=== PATIENT | male | born 1995 ===

== ENCOUNTER → 2017-12-04 | Day surgery (SDC) | payer OTHER ==
[2017-11-30 15:30] VITALS: Ht 172.7 cm; Wt 61.8 kg
[~2017-12-04] VITALS: Ht 172.7 cm; Wt 61.8 kg
[~2017-12-04] MED LIST: ATROPINE SULFATE 0.1 MG/ML 5ML SYR IV PRN; BUPIVACAINE 0.5 % 5 MG/1 ML MPF 30ML VIAL ONE; CEFAZOLIN 1000MG IV PUSH 5 ML IV SCH; DEXAMETHASONE SOD INJ 4 MG/ML VIAL ONE; FENTANYL CITRATE INJ 50 MCG/1 ML 2 ML VIAL IV PRN; FENTANYL CITRATE INJ 50 MCG/1 ML 2 ML VIAL ONE; HYDR-5688 PO; KETOROLAC TROMETHAMINE 30 MG/ML VIAL IV. PRN; LACTATED RINGER'S 1000ML 1,000 ML IV SCH; LEVE500T13 PO; LIDOCAINE HCL 2% 2 ML VIAL (20MG/ML) ONE; LIDOCAINE/EPINEPHRINE 1% 20 ML VIAL ONE; MIDAZOLAM HCL 1 MG/ML 2ML VIAL ONE; ONDANSETRON INJ 2 MG/ML 2 ML VIAL IV PRN; ONDANSETRON INJ 2 MG/ML 2 ML VIAL ONE; OXYCODONE/ACETAMINOPHEN 5-325 TAB PO PRN; PROPOFOL IV EMULSION 10 MG/ML 20 ML VIAL IV ONE; SODIUM CHLORIDE 0.9% 1000ML 1,000 ML IV SCH
--- NOTE | 2017-12-04 06:47 | History & Physical Bridge Note ---
H&P Re-Evaluation Bridge Note: I have examined the patient, reviewed the History & Physical and in the interval since the performance of the History & Physical I have noted the following changes of clinical significance: No changes noted
--- NOTE | 2017-12-04 07:52 | [facility] Post Operative Brief Note ---
Immediate Operative Summary Operative Date Dec 04, 2017. Pre-Operative Diagnosis Mallet Fracture Left Long Finger Post-Operative Diagnosis Same Procedure(s) Performed Left Long Finger Closed Reduction Pinning Surgeon Dr. Barrera Regional Marketing Director Surgeon(s) Simón Malone PA-C Estimated Blood Loss 0 mL Findings Consistent with Post-Op Diagnosis Specimens None Drains None Anesthesia Type MAC Regional Complication(s) none Disposition Accompanied Pt To Recover: no Disposition: Recovery Room / PACU
[2017-12-04 08:01] VITALS: TEMP 36.7
--- NOTE | 2017-12-04 08:04 | [facility] Operative Report ---
Operative Report Operative Date Dec 04, 2017. Pre-Operative Diagnosis Mallet Fracture Left Long Finger Post-Operative Diagnosis Same Procedure(s) Performed Left Long Finger Closed Reduction Pinning Surgeon Dr. Barrera Parts Sales Advisor Surgeon(s) Simón Malone PA-C Estimated Blood Loss 0 mL Findings As above Specimens None Anesthesia local with IV sedation Complication(s) None Disposition Recovery Room / PACU Implants 2 0.045 inch K wires Indications Patient's a 22-year-old male status post injury to the left long finger. He has a displaced mallet fracture with a large articular fragment and slight volar subluxation. This injury occurred slightly over 2 weeks ago. Description of Procedure Informed consent was obtained. The patient was identified as aure kwon. He identified on her site as the left long finger. I marked with my initials. Preoperative surgical timeout was performed. Any preoperative dose of IV antibiotics was given. He was taken to the operating room and positioned supine on the operating room table. The left arm was placed on a hand table. A tourniquet was applied to the left upper arm but not inflated during the case. The limb was prepped and draped in usual sterile fashion DVT prophylaxis was not indicated. The examination demonstrated a displaced mallet fracture under x-ray. This was able to be improved with manipulation and extension as well as volarward pressure on the dorsal fragment reducing it to almost anatomic. A 0.045 inch K wire was introduced from the distal portion of the phalanx under fluoroscopic guidance. The finger was then maximally flexed and a second 0.045 inch K wire was introduced just proximal to the fragment through the extensor tendon. This was then drilled into the middle phalanx bicortically. The finger was then extended which reduced the fracture fragment. Dorsalward pressure was applied on the distal fragment. The initial K wire was then drilled across the DIP joint in a bicortical fashion. The pins were in good position bicortically on x-ray. The fracture and joint were reduced. A relaxing incision was made dorsally after bending the pin slightly. This was closed with 4-0 nylon. The pins were cut short outside the skin and Jurgan balls were applied. A soft sterile dressing was applied Xeroform 2 x 2's and Cassy Coban. The patient also has a possible nondisplaced fracture involving the ring finger distal phalanx. A splint was reapplied to that finger also. A volar splint immobilizing the DIP joint. Patient awakened from anesthesia without difficulty and taken to the recovery room in stable condition. There were no specimens or complications. Counts were correct in the case. Blood loss was minimal. At the conclusion operation I spoke the patient's friend. I informed him of my findings gave detailed postoperative instructions. Prior to start of the operation a digital block was performed with a 50-50 mixture of 0.5% Marcaine and 1% lidocaine with epinephrine I attest to the content of the Intraoperative Record and any orders documented therein. Any exceptions are noted below.
--- NOTE | 2017-12-04 08:08 | Discharge Instructions-SurgCtr ---
Discharge Instructions Date of Service Dec 04, 2017. Visit Reason for Visit: Left Long Finger Mallet Fracture Discharge Discharge Diagnosis / Problem: left long finger mallet fracture Discharge Goals Goal(s): Decrease discomfort, Improve function, Increase independence Activity Recommendations Activity Limitations: per Instructions/Follow-up section Weightbearing Status: Left non-weightbearing (left hand) Anesthesia . Post Anesthesia Instructions: If you have had General Anesthesia or IV Sedation: * Do not drive today. * Resume driving when surgeon permits. * Do not make important decisions or sign legal documents today. * Call surgeon for: 1. Temperature elevations greater than 101 degrees F. 2. Uncontrollable pain. 3. Excessive bleeding. 4. Persistent nausea and vomiting. 5. Medication intolerance (nausea, vomiting or rash). * For nausea and vomiting use only clear liquids such as: tea, soda, bouillon until nausea subsides, then gradually increase diet as tolerated. * If you have any concerns or questions, call your surgeon's office. If physician is unavailable and it is an emergency, call 911 or go to the nearest emergency room. . Instructions / Follow-Up Instructions / Follow-Up DIET: * Resume previous diet. MEDICATIONS: * Please take your prescriptions as instructed at your pre-op appointment and/ or see medication discharge instructions listed above. * If concerns develop, call your physician's office at . SPECIAL CARE INSTRUCTIONS: * Ice to left hand * Elevate left hand above heart to relieve pain/swelling * Keep dressing clean, dry, intact. * Your surgical extremity may be discolored due to prepping agents used on the skin. A bluish-green tint is a normal variant and should not cause alarm. * Ok to do range of motion to fingers left hand Call your doctor at [phone] if: * Temperature above 101 degrees * Pain not relieved by pain medicine ordered * There is increased drainage or redness from any incision * You have any unanswered questions, problems or concerns. FOLLOW UP VISIT: * If not already scheduled, please call the office at to schedule a follow-up appointment. * Please follow up with Loyda Malone PA-C on 12/06/17 at 3:45 p.m. * Please call [phone] with any questions, concerns or need to reschedule appointment Diet Recommendations Home Diet: no limitations, resume previous diet Procedures Procedures Performed: Left Long Finger Closed Reduction Pinning Pending Studies Studies pending at discharge: no Medical Emergencies . Who to Call and When: Medical Emergencies: If at any time you feel your situation is an emergency, please call 911 immediately. . Non-Emergent Contact Non-Emergency issues call your: Surgeon Call Non-Emergent contact if: temperature is above 101, your pain is not controlled, wound has increased drainage, wound has increased redness, wound has increased pain, you have any medication questions . . "Provider Documentation" section prepared by Loyda Malone. . [place] Drug Monitoring Program Search Results: patient reviewed within database, no issues identified
--- NOTE | 2017-12-04 08:11 | [facility] Operative Report ---
Operative Report Operative Date Dec 04, 2017. Pre-Operative Diagnosis Mallet Fracture Left Long Finger Post-Operative Diagnosis Same Procedure(s) Performed Left Long Finger Closed Reduction Pinning Surgeon Dr. Barrera Supervisor Benzene Refining Surgeon(s) Simón Malone PA-C Estimated Blood Loss 0 mL Findings Left ring finger mallet fracture Specimens None Drains none Anesthesia local with IV sedation Complication(s) None Disposition Recovery Room / PACU Indications Patient is a 22-year-old male status post injury to his left hand. He was seen and evaluated in our office. X-rays showed a left middle finger bony mallet fracture. Surgical intervention was recommended and he agreed to proceed with surgery. Risks and complications were discussed. Informed consent was obtained. Description of Procedure Patient was taken to the operating room and placed under IV sedation with local anesthetic. He was given 1 g of IV Ancef for surgical prophylaxis. He was prepped and draped in routine sterile fashion. Time out was performed. I was present during the entire case, please see Dr. Barrera's operative report for further detail. Patient was awakened and transferred to the recovery room in stable condition. I attest to the content of the Intraoperative Record and any orders documented therein. Any exceptions are noted below.
--- NOTE | 2017-12-04 08:22 | Anesthesia Progress Nt - [facility] ---
Anesthesia Post Op Note Date & Time Dec 04, 2017 at 08:21 Vital Signs Pain Intensity: 0 Vital Signs Past 12 Hours Date Time Temp Pulse Resp B/P (MAP) Pulse Ox O2 Delivery O2 Flow Rate FiO2 12/04/17 08:01 36.7 66 16 108/67 (81) 98 Room Air 12/04/17 06:30 36.6 71 16 125/78 (94) 96 Room Air Notes Mental Status: alert / awake / arousable, participated in evaluation Pt Amnestic to Procedure: Yes Nausea / Vomiting: adequately controlled Pain: adequately controlled Airway Patency, RR, SpO2: stable & adequate BP & HR: stable & adequate Hydration State: stable & adequate Anesthetic Complications: no major complications apparent
[2017-12-04 08:23] VITALS: BP 104/54; PULSE 77; O2SAT 99
== END | disposition home or self-care (01) ==
LOC: X.SURG 06:20
PROVIDERS: ATTEND Physical Medicine & Rehabilitation Sports Medicine
DX: M20.012 Mallet finger of left finger(s) (principal); W03.XXXA Other fall on same level due to collision with another person, initial encounter; Y93.67 Activity, basketball; G40.909 Epilepsy, unspecified, not intractable, without status epilepticus

== ENCOUNTER → 2017-12-17 | Outpatient (CLI) | payer OTHER ==
[~2017-12-17] MED LIST changes: -ATROPINE SULFATE 0.1 MG/ML 5ML SYR IV PRN; -BUPIVACAINE 0.5 % 5 MG/1 ML MPF 30ML VIAL ONE; -CEFAZOLIN 1000MG IV PUSH 5 ML IV SCH; -DEXAMETHASONE SOD INJ 4 MG/ML VIAL ONE; -FENTANYL CITRATE INJ 50 MCG/1 ML 2 ML VIAL IV PRN; -FENTANYL CITRATE INJ 50 MCG/1 ML 2 ML VIAL ONE; -KETOROLAC TROMETHAMINE 30 MG/ML VIAL IV. PRN; -LACTATED RINGER'S 1000ML 1,000 ML IV SCH; -LIDOCAINE HCL 2% 2 ML VIAL (20MG/ML) ONE; -LIDOCAINE/EPINEPHRINE 1% 20 ML VIAL ONE; -MIDAZOLAM HCL 1 MG/ML 2ML VIAL ONE; -ONDANSETRON INJ 2 MG/ML 2 ML VIAL IV PRN; -ONDANSETRON INJ 2 MG/ML 2 ML VIAL ONE; -OXYCODONE/ACETAMINOPHEN 5-325 TAB PO PRN; -PROPOFOL IV EMULSION 10 MG/ML 20 ML VIAL IV ONE; -SODIUM CHLORIDE 0.9% 1000ML 1,000 ML IV SCH
== END | disposition home or self-care (01) ==
LOC: C.RDSM 18:16
PROVIDERS: ATTEND Physical Medicine & Rehabilitation Sports Medicine
DX: S62.635A Displaced fracture of distal phalanx of left ring finger, initial encounter for closed fracture (principal); X58.XXXA Exposure to other specified factors, initial encounter

== ENCOUNTER → 2018-01-11 | Outpatient (CLI) | payer OTHER | END | disposition home or self-care (01) | LOC: C.RDSM 11:03 | PROVIDERS: ATTEND Physical Medicine & Rehabilitation Sports Medicine | DX: S62.665A Nondisplaced fracture of distal phalanx of left ring finger, initial encounter for closed fracture (principal); S62.635A Displaced fracture of distal phalanx of left ring finger, initial encounter for closed fracture; X58.XXXA Exposure to other specified factors, initial encounter ==

== ENCOUNTER → 2018-02-08 | Outpatient (CLI) | payer OTHER | END | disposition home or self-care (01) | LOC: C.RDSM 20:24 | PROVIDERS: ATTEND Physical Medicine & Rehabilitation Sports Medicine | DX: M79.645 Pain in left finger(s) (principal) ==

== ENCOUNTER → 2018-03-08 | Outpatient (CLI) | payer OTHER | END | disposition home or self-care (01) | LOC: C.RDSM 12:00 | PROVIDERS: ATTEND Physical Medicine & Rehabilitation Sports Medicine | DX: S62.633D Displaced fracture of distal phalanx of left middle finger, subsequent encounter for fracture with routine healing (principal); X58.XXXD Exposure to other specified factors, subsequent encounter ==